=== PATIENT | female | born 1965 | race Caucasian/White ===

== ENCOUNTER 2020-04-18 14:06 | Emergency (ER) | payer BC ==
--- OUTSIDE RECORDS SUMMARY | 2020-04-18 14:09 | XMS REPORT | Summary of Care ---
:1965 Author Organization [facility] - Health Address [address] [place] [address] Care Team Providers Name Role Phone Jeimy Palacios Primary Care Provider Encounter Details Date Type Department Care Team Description 01/21/2020 Orders Only [facility] Doctor Unassigned, No [address] [facility] [place] [address] [address] [place] [address] Allergies No Known Allergiesdocumented as of this encounter (statuses as of 01/22/2020) Medications Medication Sig Dispensed Refills Start Date End Date Status VIIBRYD 20 mg Take 20 mg by 0 01/12/2020 A ctive mouth daily. traZODone 100 mg tablet Take 100 mg by 0 12/12/2019 Active mouth at bedtime. levothyroxine 50 mcg Take 50 mcg by 0 12/11/2019 Active tablet mouth every morning. documented as of this encounter (statuses as of 01/22/2020) Active Problems Not on filedocumented as of this encounter (statuses as of 01/22/2020) Social History Tobacco Use Types Packs/Day Years Used Date Former Smoker Smokeless Tobacco: Never Used Alcohol Use Drinks/Week oz/Week Comments Yes Occasional Drink er Sex Assigned at Date Recorded Not on file Job Start Date Occupation Industry Not on file Not on file Not on file Travel History Travel Start Travel End No recent travel history available. documented as of this encounter Last Filed Vital Signs Not on filedocumented in this encounter Plan of Treatment Health Maintenance Due Date Last Done Comments DTaP,Tdap,and Td Vaccines 1977 (1 - Tdap) Breast Cancer Screening 2006 (MAMMOGRAM) PAP SMEAR 08/16/2009 08/16/2006, 09/20/2005, 04/24/2005, Additional history exists COLONOSCOPY 2016 Zoster Recombinant Vaccine 2016 (SHINGRIX) (1 of 2) INFLUENZA VACCINE (#1) 2019 PNEUMOCOCCAL 0-64 YEARS Aged Out No longe r eligible COMBINED SERIES based on patient 's age to complete this topic documented as of this encounter Procedures Procedure Name Priority Date/Time Associated Diagnosis Comme DAY SURGERY - ADC Routine 01/21/2020 12:01 AM CDT documented in this encounter Results Not on filedocumented in this encounter Insurance Payer Benefit Plan Subscriber ID Effective Dates Phone Address Type / Group [employer] [place] [id number] 2018-Kacie [phone] [address] PPO/POS [place] nt [id number] [place] [address] documented as of this encounter
--- OUTSIDE RECORDS SUMMARY | 2020-04-18 14:09 | XMS REPORT | Summary of Care ---
:1965 Author Organization [facility] - Health Address [address] [place] [id number] Care Team Providers Name Role Phone Jeimy Palacios Primary Care Provider Reason for Visit Auth/Cert Status Reason Specialty Diagnoses / Procedures Referred By C ontact Referred To Contact Surgery Diagnoses Other tear of medial meniscus, current injury, right knee, initial encounter Sprain of anterior cruciate ligament of right knee, initial encounter Tear of mm, sprain of acl Adc Pre/Pacu/Post S83.241A (ICD-10 -CM) - Other tear of medial meniscus, current injury, right knee, initial encounter S83.511A (ICD-10-CM) - Sprain of anterior cruciate ligament of right knee, initial encounter [facility] Procedures [facility] CODING HELP [facility] CODING HELP [place] KNEE SCOPE,AID ANT CRUCIATE REPAIR [place] ARTHRS KNE SURG W/MENISCECTOMY MED/LAT W/SHVG KNEE ARTHROSCOPY 66933 - [place] ARTHRS KNE SURG W/MENISCECTOMY MED/LAT W/SHVG ANTERIOR CRUCIAT E LIGAMENT RECONSTRUCTION [id number] - [place] KNEE SCOPE,AID [place] [address] Phone: Fax: Encounter Details Date Type Department Care Team Description 01/21/2020 Anesthesia [facility] John Paul Araiza MD [address] [place] [address] Surgical Center Leydi Khan CRNA [address] [place] [address] [phone] [place] [address] [place] [address] Allergies No Known Allergiesdocumented as of this encounter (statuses as of 01/23/2020) Medications Medication Sig Dispensed Refills Start Date End Date Status VIIBRYD 20 mg Take 20 mg by 0 01/12/2020 A ctive mouth daily. traZODone 100 mg tablet Take 100 mg by 0 12/12/2019 Active mouth at bedtime. levothyroxine 50 mcg Take 50 mcg by 0 12/11/2019 Active tablet mouth every morning. documented as of this encounter (statuses as of 01/23/2020) Active Problems Not on filedocumented as of this encounter (statuses as of 01/23/2020) Social History Tobacco Use Types Packs/Day Years [...] of this encounter Last Filed Vital Signs Vital Sign Reading Time Taken Comments Blood Pressure - - Pulse - - Temperature - - Respiratory Rate 14 01/21/2020 10:45 AM CDT Oxygen Saturation - - Inhaled Oxygen Concentration - - Weight - - Height - - Body Mass Index - - documented in this encounter Plan of Treatment Health [...] Procedure Name Priority Date/Time Associated Diagnosis Comme nts INTUBATION Routine 01/21/2020 9:56 AM Results for this CDT procedure are i n the results section . documented in this encounter Results Intubation (01/21/2020 9:56 AM CDT) Narrative Performed At Arturo John CRNA 01/21/2020 9:5 6 AM Intubation Urgency: elective Airway not difficult General Information and Staff Patient location during procedure: OR Resident/COURIER DRIVER: Arturo John CRNA Performed: resident/COURIER DRIVER Indications and Patient Condition Indications for airway management: anest hesia Spontaneous Ventilation: absent Sedation level: deep Preoxygenated: yes Patient position: sniffing Mask difficulty assessment: 1 - vent by mask Final Airway Details Final airway type: supraglottic airway Successful airway: classic Size 3 Number of attempts at approach: 1 Additional Comments Airway dry intact documented in this encounter Administered Medications Medication Order MAR Action Action Date Dose Rate Site ceFAZolin (ANCEF) injection Given 01/21/2020 9:51 AM CDT 2 g ONCE INTRA PROCEDURE, Starting Sun01/21/20 at 0951, Until Sun01/21/20 at 1054, HANNA, Intra-op dexamethasone (DECADRON PHOSPHATE) injec tion Given 01/21/2020 9:51 AM CDT 4 mg Intravenous, ONCE INTRA PROCEDURE, Starting Sun01/21/20 at 0951, Until Sun01/21/20 at 1054, Routine, Intra-op famotidine (PEPCID (PF)) injection Given 01/21/2020 9:26 AM CDT 20 mg ONCE INTRA PROCEDURE, Starting Sun01/21/20 at 0926, Until Sun01/21/20 at 1054, Routine, Intra-op FENTanyl PF (SUBLIMAZE (PF)) injection Given 01/21/2020 10:05 AM CDT 25 mcg Intravenous, ONCE INTRA PROCEDURE, Starting Sun01/21/20 at 0945, Until Sun01/21/20 at 1054, Routine, Intra-op Given 01/21/2020 10:00 AM CDT 25 mcg Given 01/21/2020 9:45 AM CDT 50 mcg HYDROmorphOne (DILAUDID) injection Given 01/21/2020 10:40 AM CDT 0.5 mg Intravenous, ONCE INTRA PROCEDURE, Starting Sun01/21/20 at 1025, Until Sun01/21/20 at 1054, Routine, Intra-op Given 01/21/2020 10:30 AM CDT 0.5 mg Given 01/21/2020 10:25 AM CDT 0.5 mg lactated ringers IV infusion New Bag 01/21/2020 9:34 AM CDT IV Infusion, CONTINUOUS PRN, Starting Sun01/21/20 at 0934, Until Sun01/21/20 at 1054, Routine, Intra-op lidocaine 1% (XYLOCAINE) 100 mg/10 mL (1 %) Given 01/21/2020 9: 45 AM CDT 5 mL injection ONCE INTRA PROCEDURE, Starting Sun01/21/20 at 0945, Until Sun01/21/20 at 1054, Routine, Intra-op midazolam (VERSED) injection Given 01/21/2020 9:34 AM CDT 2 mg IV Push, ONCE INTRA PROCEDURE, Starting Sun01/21/20 at 0934, Until Sun01/21/20 at 1054, Routine, Intra-op propofol IV infusion Given 01/21/2020 9:45 AM CDT 100 mg Intravenous, ONCE INTRA PROCEDURE, Starting Sun01/21/20 at 0945, Until Sun01/21/20 at 1054, Routine, Intra-op documented in this encounter Insurance Payer Benefit Plan Subscriber ID Effective Dates Phone Address Type / Group BCBS OF [facility] [id number] 2018-Prese [phone] [address] PPO/POS [facility] 7 [id number] [place] [address] (Work) documented as of this encounter
--- OUTSIDE RECORDS SUMMARY | 2020-04-18 14:09 | XMS REPORT | Summary of Care ---
:1965 Author Organization [facility] - Health Address [address] [place] [address] Care Team Providers Name Role Phone Philip Jeimy Zhao Primary Care Provider Reason for Visit Auth/Cert [...] ligament of right knee, initial encounter [address] [facility] Procedures [facility] CODING HELP [facility] CODING HELP [place] KNEE SCOPE,AID ANT CRUCIATE REPAIR [place] ARTHRS KNE SURG W/MENISCECTOMY MED/LAT W/SHVG KNEE ARTHROSCOPY [id number] - [place] ARTHRS KNE SURG W/MENISCECTOMY MED/LAT W/SHVG Dr MESSER CRUCIAT E LIGAMENT RECONSTRUCTION [id number] - [place] KNEE SCOPE,AID [place] [address] Phone: Fax: Encounter Details Date Type Department Care Team Description 01/21/2020 Hospital Encounter [facility] MD Gael [address] [facility] [place] [address] [address] [place], [place] [id number] Allergies No Known Allergiesdocumented as of this encounter (statuses as of 01/21/2020) Medications Medication Sig Dispensed Refills Start Date End Date Status VIIBRYD 20 mg Take 20 mg by 0 01/12/2020 A ctive mouth daily. traZODone 100 mg tablet Take 100 mg by 0 12/12/2019 Active mouth at bedtime. levothyroxine 50 mcg Take 50 mcg by 0 12/11/2019 Active tablet mouth every morning. documented as of this encounter (statuses as of 01/21/2020) Active Problems Not on filedocumented as of this encounter (statuses as of 01/21/2020) Social History Tobacco Use Types Packs/Day Years [...] Sign Reading Time Taken Comments Blood Pressure 116/64 01/21/2020 11:45 AM CDT Pulse 62 01/21/2020 11:45 AM CDT Temperature 36.9 C (98.4 F) 01/21/2020 11:45 AM CDT Respiratory Rate 18 01/21/2020 11:45 AM CDT Oxygen Saturation 96% 01/21/2020 11:45 AM CDT Inhaled Oxygen Concentration - - Weight 63.5 kg (139 lb 15.9 oz) 01/20/2020 1:18 PM CDT Height 160 cm (5' 2.99") 01/20/2020 1:18 PM CDT Body Mass Index 24.8 01/20/2020 1:18 PM CDT documented in this encounter Discharge Instructions InstructionsFelisha Schultz RN - 01/21/2020 Patient Discharge Instructions Discharge date: 01/21/2020 Procedure(s): Procedure(s): KNEE ARTHROSCOPY Discharge Orders Regular Diet; Texture: Regular. Texture Regular. Diabetic: No Discharge Condition - Discharge Condition: GOOD Discharge ActivityF/U my office 2 weeks, sooner to office or ER with problems, encourage early mobility, ok to be WBAT, walker or crutches if needed. May loosen callie wrap if too tight, may change to smaller sterile dressing POD #4, also take ASA 325 mg po qd x 14 days Discharge Activity: Ambulate VTE Propylaxis- Was ordered during hospitalization Follow instructions as indicated below: 1. The medication that was used will be acting in your system for the next 24 hours, so you might feel a little drowsy, with impaired judgment and or motor function. This feeling should go wear off. Because the medication is still in your system for the next 24 hours you SHOULD NOT: Drive a car, operate machinery or power tool. Drink any alcohol beverages (including beer or wine). Make any important decisions or sign any legal documents. 2. You should rest the remainder of the day and not engage in any physical activity. Move slowly today. After lying down, sit on the edge of the bed for a moment before standing. YOU ARE RESPONSIBLEFOR HAVING SOMEONE AT HOME WITH YOU DURING THE AFTERNOON AND NIGHT IMMEDIATELY FOLLOWING YOUR SURGERY. Patient should cough and deep breathe every 2-4 hours while awake to avoid respiratory complications. 4. Lifting: No lifting over 5 pounds 5. Weight: In general, sudden weight gains or losses should be reported to your provider. Cardiac patients should weigh daily and notify their provider for a weight gain of 3 pounds per day or 5 pounds per week. 6. Tobacco Avoidance: Follow recommendations below 7. Because the medications used could procedure some residual nausea and vomiting after you go home,you should eat lightly today, starting with clear liquids (broth, soft drinks, apple juice, jello) and toast or crackers, progressing to bland solid foods and then to your normal diet as tolerated, unle ss otherwise stated by your surgeon. If you get sick, wait a couple of hours and then begin to eat. After 24 hours the nausea should be gone. 8. You may experience some pain and your physician will advise you on what to take for discomfort. This should be taken as directed. If the pain is not relieved, contact your physician. You may alsohave a sore throat from the airway that was in place. You may uses lozenges, throat spray (such as C hloraseptic), or warm salt water gargles for symptomatic relief. 9. If you feel warm, take your temperature. If it is 101 degrees or above call your physician. 10. If you are unable to urinate within five hours after your procedure, call your physician. 11. The type of surgery performed will determine how much bleeding (if any) to expect. Normally, some spotting might occur. If your dressing pad becomes saturated, notify your physician. Elevate surgical site, if applicable, to reduced swelling and pain. 12. Wound/dressing care: keep dressing clean, dry, and intact. SEE ABOVE WOUND CARE INSTRUCTIONS Tips on preventing a surgical site infection.. Dont smoke. It is best to quit at least 30 days before surgery, but quitting after surgery is also helpful. If you are diabetic, keep your blood sugar well controlled. WASH YOUR HANDS. Keep your wound clean and remember to wash your hands before and after contact with the area. All health care workers should also wash their hands or use an alcohol based hand rub prior to examining you. If antibiotics are prescribed, take them as directed. Finish the entire course of antibiotics. Call your doctor if you have signs of infection: ? Increased tenderness at the surgical site ? Red streaks or increased redness of the area ? Bad-smelling discharge from the incision ? Fever of 101F or higher ? General tired feeling that doesnt improve 13. Other discharge instructions: None 14. Special Instructions: NONE Take Home Medications These are medications ordered for you by your healthcare provider. Do not take any other medications or supplements unless advised by your healthcare provider. Current Discharge Medication List CONTINUE these medications which have NOT CHANGED Details levothyroxine 50 mcg tablet Take 50 mcg by mouth every morning. traZODone 100 mg tablet Take 100 mg by mouth at bedtime. VIIBRYD 20 mg Take 20 mg by mouth daily. Follow-up appointments: Your follow up appointment with your surgeon has been made. Appointment Date: Call office to make follow up appointment in 1-2 weeks For questions regarding follow-up instructions call the [facility] at or If you experience any of the following symptoms For worsening symptoms/changing condition/problems or questions: Non-emergency/urgent: Call the [facility] at or or Emergency: Go to the closest emergency room or call 264 If you receive the patient satisfaction survey by mail please complete and return and let us know how we are doing. TOBACCO AVOIDANCE Exposure to tobacco either from smoking or from second hand (environmental) smoke or smokeless tobacco (snuff) is damaging to your health. This information is to encourage everyone to avoid tobacco exposure. It is recommended that you: ? If you smoke or use smokeless tobacco, we encourage you to quit. ? If you have already quit smoking, continue your good work! ? If you do not smoke or use smokeless tobacco, do not start. ? Avoid secondhand smoke. Additional Resources You may want to contact these organizations for further information on smoking and how to quit. [place] [employer], http://www.lungusa.org/stop-smoking/ [place] [employer], http://www.cancer.org/Healthy/StayAwayfromTobacco/index [place] [employer], http://www.heart.org/HEARTORG/GettingHealthy/QuitSmoking/Quit-Smoking_M _001085_SubHomePage.jsp documented in this encounter Plan of Treatment [...] this topic documented as of this encounter Results Not on filedocumented in this encounter Visit Diagnoses Diagnosis Acute pain of right knee - Primary documented in this encounter Administered Medications Medication Order MAR Action Action Date Dose Rate Site qtjkrrzgrhs-rwiafdbnshn-fy Given 01/21/2020 10:49 AM CDT 30 mL Right Knee (SENSORCAINE W/EPINEPHRINE) 0.25 %-1:200,000 injection PRN, Starting Sun01/21/20 at 1049, Until Discontinued, Routine, Intra-op ceFAZolin (ANCEF) 1,000 mg in NaCl 0.9% (NS) 50 mL piggyback 1,000 mg, IV Piggyback, O.R. HOLDING ONC E, 1 dose, Starting Sun01/21/20 at 0930, Until Sheila 3/12/20 at 2359, 50 mL, DSU Pr e-op, Reason for Anti-Infective: Surgical Prophylaxis, Surgical Prophylaxis: Orthopaedic, Durati on of therapy: within 24 hours of surgery FENTanyl PF (SUBLIMAZE (PF)) injection 2 5 mcg 25 mcg, Slow IV Push, Q5MIN PRN, 4 doses, Starting 01/21/20 at 1106, Until Discontinued, Routine, Pain (scale 4-6), PACU HYDROmorphone (DILAUDID) injection 0.2 m g 0.2 mg, Slow IV Push, Q5MIN PRN, 10 doses, Starting We d 01/21/20 at 1106, Until Discontinued, Routine, Pain (scale 7-10) , PACU, Use approved by (Faculty): PACU USE -ANESTHESIA SERVICE-HYDROMORPHONE INJECTIONS lactated ringers IV infusion 1,000 mL at 75 mL/hr, 1,000 mL, IV Infusion, CONT INUOUS, Starting Sun01/21/20 at 1115, Until Discontinued, Routine, PACU ondansetron (ZOFRAN (PF)) injection 4 mg 4 mg, Slow IV Push, PRN, 1 dose, Startin g Sun01/21/20 at 1106, Until Discontinued, Routine, Nausea and Vomiting (N/V), PACU Medication Order MAR Action Action Date Dose Rate Site lactated ringers IV infusion New Bag 01/21/2020 8:39 AM CDT 1,000 mL 20 mL/hr 1,000 mL at 20 mL/hr, 1,000 mL, IV Infusion, ONCE, 1 dose, Sun01/21/20 at 0830, Routine, DSU Pre-op documented in this encounter Insurance Payer Benefit Plan Subscriber ID Effective Dates Phone Address Type / Group [facility] [id number] 2018-Prese [phone] [address] PPO/POS [facility] 7 [id number] [place] [address] Guarantor Name Account Type Relation to Date of Phone Billing Address Patient Madelyn Schmidt Personal/Family Self [address] (Home) [place] [phone] [place] [id number] (Work) documented as of this encounter
--- OUTSIDE RECORDS SUMMARY | 2020-04-18 14:09 | XMS REPORT | Continuity of Care Document ---
:1965 Author Organization [facility] t Address [address] [place] [address] [address]. [address] [place] [address] Care Team Providers Name Role Phone Gael Villa MD Attending Clinician Erin CALLES Attending Clinician Zhao Trinidad MD Attending Clinician Doctor Unassigned, Name Attending Clinician Unavailable Pob, Lab Main Attending Clinician Unavailable Gael Villa MD Admitting Clinician Problems This patient has no known problems. Allergies, Adverse Reactions, Alerts This patient has no known allergies or adverse reactions. Medications This patient has no known medications. Procedures This patient has no known procedures. Encounters Start End Encounter Admission Attending Care Care Encounter Source Date/Time Date/Time Type Type Clinicians Facility Department ID 2020-01-21 2020-01-21 [facility] [id number] 08:27:00 12:16:00 Encounter Wilver Norris [id number] [place] [id number] Surgical [id number] [place] 071 2020-01-21 2020-01-21 Anesthesia Leydi Khan [facility] [id number] 09:34:00 10:54:00 John Paul Trinidad [id number] [place] [id number] Surgical [id number] [place] 020 2020-01-21 2020-01-21 Orders Doctor SARBJIT [id number] 00:00:00 00:00:00 Only Unassigned, DANI [id number] [place] [id number] 2020-01-19 2020-01-19 Timekeeping Supervisor Sissy Austin [place] [id number] 09:49:44 10:04:44 Visit Lab Main [place] [id number] [place] [id number] [facility] [id number] [address] 2020-01-19 2020-01-19 Orders Doctor SARBJIT [id number] 00:00:00 00:00:00 Only Unassigned, DANI [id number] [place] [id number] Results This patient has no known results.
[2020-04-18] MEDS ORDERED: HYDROCODONE/APAP 5/325 MG TAB ONE (14:52)
--- NOTE | 2020-04-18 15:32 | RAD REPORT ---
EXAM DESCRIPTION: RAD - Hand Right 3 View - 04/18/2020 3:18 pm CLINICAL HISTORY: ANIMAL BITE COMPARISON: No comparisons FINDINGS: Soft tissue swelling is seen affecting the first digit. No fracture or foreign body.
--- NOTE | 2020-04-18 15:40 | EDPHYS ---
Physician Documentation [facility] Name: Madelyn Schmidt Age: 54 yrs Sex: Female : 1965 Arrival Date: 04/18/2020 Time: 14:09 Bed 20 Private MD: ED Physician Jose A Jc HPI: 04/18 14:34 This 54 yrs old Female presents to ER via Ambulatory with complaints of Dog pm1 Bite. 14:34 The patient was bitten on the right hand, by a dog, while approaching the animal, pm1 outdoors. Onset: The symptoms/episode began/occurred yesterday. Animal information: Patient/Caregiver unable to provide information related to the animal. Animal control has been notified, Patient states that she talked to Mark with animal control. Secondary to the bite the patient reports multiple puncture wounds, two puncture wounds, dorsal and palmar aspect of right first metacarpal. Associated signs and symptoms: Pertinent negatives: bony tenderness, motor deficit, numbness distal to wound, tenderness. The patient has not experienced similar symptoms in the past. The patient has not recently seen a physician. Historical: - Allergies: 14:30 No Known Allergies; ll1 - PSHx: 14:30 ; right knee surgery; ll1 - Social history:: Patient/guardian denies using alcohol, street drugs, tobacco products. ROS: 14:36 Constitutional: Negative for fever, chills, and weight loss, Cardiovascular: Negative pm1 for chest pain, palpitations, and edema, Respiratory: Negative for shortness of breath, cough, wheezing, and pleuritic chest pain, Abdomen/GI: Negative for abdominal pain, nausea, vomiting, diarrhea, and constipation, Back: Negative for injury and pain. 14:36 Neuro: Negative for headache, weakness, numbness, tingling, and seizure. 14:36 MS/extremity: Positive for laceration, of the right hand, Negative for decreased range of motion, deformity. 14:36 Skin: Positive for laceration(s), of the right hand. Exam: 14:36 Constitutional: This is a well developed, well nourished patient who is awake, alert, pm1 and in no acute distress. Head/Face: Normocephalic, atraumatic. 14:36 Cardiovascular: Exam negative for acute changes, Rate: normal, Rhythm: regular, Pulses: no pulse deficits are appreciated. 14:36 Respiratory: Exam negative for acute changes, respiratory distress, shortness of breath. 14:36 Musculoskeletal/extremity: Extremities: grossly normal except: noted in the dorsal aspect of proximal phalanx of right thumb and palmar aspect of proximal phalanx of right thumb: laceration, 1 cm length on both sides, 2 mm deep on dorsal aspect and 1 mm deep on palmar aspect, There is no evidence of decreased ROM, deformity, ROM: no acute changes, Circulation is intact in all extremities. the right hand Sensation intact. 14:36 Skin: Appearance: normal except for affected area, injury, laceration(s), that can be described as right hand. 14:36 Neuro: Orientation: is normal, Mentation: is normal, Motor: is normal, moves all fours, Sensation: is normal, no obvious gross deficits. Vital Signs: 14:28 BP 124 / 83; Pulse 70; Resp 17; Temp 97.6; Pulse Ox 100% ; Pain 6/10; ll1 MDM: 14:30 Patient medically screened. pm1 15:30 Data reviewed: vital signs. Data interpreted: Pulse oximetry: on room air is 100 %. pm1 Interpretation: normal. Counseling: I had a detailed discussion with the patient and/or guardian regarding: the historical points, exam findings, and any diagnostic results supporting the discharge/admit diagnosis, radiology results, the need for outpatient follow up, to return to the emergency department if symptoms worsen or persist or if there are any questions or concerns that arise at home. 15:40 ED course: shallow and short laceration to right hand. No sutures required. pm1 04/18 14:34 Order name: Hand Right 3 View XRAY; Complete Time: 15:40 pm1 04/18 14:34 Order name: Wound Care; Complete Time: 19:45 pm1 Administered Medications: 14:46 Drug: Jasper 5 mg-325 mg 1 tabs Route: PO; 15:00 Follow up: Response: No adverse reaction 15:30 Drug: Augmentin 875 mg Route: PO; 19:45 Follow up: Response: No adverse reaction Disposition: 17:40 Co-signature as Attending Physician, Jose A Jc MD. rn Disposition: 04/18/20 15:36 Discharged to Home. Impression: Bitten by dog, Laceration without foreign body of right hand. - Condition is Stable. - Discharge Instructions: Laceration Care, Adult, Animal Bite. - Prescriptions for Augmentin 875- 125 mg Oral Tablet - take 1 tablet by ORAL route every 12 hours for 10 days; 20 tablet. Tramadol 50 mg Oral Tablet - take 1 tablet by ORAL route every 8 hours as needed; 12 tablet. - Medication Reconciliation Form, Thank You Letter, Antibiotic Education, Prescription Opioid Use form. - Follow up: Emergency Department; When: As needed; Reason: Worsening of condition. Follow up: Private Physician; When: 2 - 3 days; Reason: Recheck today's complaints, Continuance of care, Re-evaluation by your physician. - Problem is new. - Symptoms have improved. Signatures: Dispatcher [employer] EDMS Jose A Jc MD MD rn Marinas, Patrick, NP LINES TENDER pm1 Karissa Patel RN RN Audrey Reyes RN RN Johnna Leija RN RN ll1 Corrections: (The following items were deleted from the chart) 15:51 15:36 04/18/2020 15:36 Discharged to Home. Impression: Bitten by dog; Laceration hb without foreign body of right hand. Condition is Stable. Forms are Medication Reconciliation Form, Thank You Letter, Antibiotic Education, Prescription Opioid Use. Follow up: Emergency Department; When: As needed; Reason: Worsening of condition. Follow up: Private Physician; When: 2 - 3 days; Reason: Recheck today's complaints, Continuance of care, Re-evaluation by your physician. Problem is new. Symptoms have improved. pm1
--- NOTE | 2020-04-18 15:40 | ER ---
Nurse's Notes [facility] Name: Madelyn Schmidt Age: 54 yrs Sex: Female : 1965 Arrival Date: 04/18/2020 Time: 14:09 Bed 20 Private MD: Diagnosis: Bitten by dog;Laceration without foreign body of right hand Presentation: 04/18 14:28 Chief complaint: Patient states: Bitten by a stray dog yesterday at 1600. Right hand ll1 1st digit pain and swelling started today. Coronavirus screen: Proceed with normal triage. Patient denies a cough. Patient denies shortness of breath or difficulty breathing. Patient denies measured and/or subjective temperature greater than 100.4F prior to today's visit. Patient denies travel on a cruise ship or to a country the [facility] currently lists as an affected area. Patient denies contact with known and/or suspected case of COVID-19. Ebola Screen: Patient denies travel to an Ebola-affected area in the 21 days before illness onset. Risk Assessment: Do you want to hurt yourself or someone else? Patient reports no desire to harm self or others. Onset of symptoms was April 17, 2020. 14:28 Method Of Arrival: Ambulatory ll1 14:28 Acuity: MANISHA 4 ll1 14:49 Initial Sepsis Screen: Does the patient meet any 2 criteria? No. Patient's initial ll1 sepsis screen is negative. Does the patient have a suspected source of infection? No. Patient's initial sepsis screen is negative. Triage Assessment: 14:51 Bite description: by a dog. 19:49 Bite description: bite. Historical: - Allergies: 14:30 No Known Allergies; ll1 - PSHx: 14:30 ; right knee surgery; ll1 - Social history:: Patient/guardian denies using alcohol, street drugs, tobacco products. Screenin:51 Abuse screen: Denies threats or abuse. Nutritional screening: No deficits noted. Tuberculosis screening: No symptoms or risk factors identified. Fall Risk None identified. Assessment: 14:34 Reassessment: Dog bit reported to [facility], officer in route. hb 14:48 General: Appears in no apparent distress. Behavior is calm, cooperative. Pain: Complains of pain in Right first web space. Neuro: Level of Consciousness is awake, alert, Oriented to person, place, time, situation. Cardiovascular: Capillary refill < 3 seconds Patient's skin is warm and dry. Respiratory: Airway is patent Respiratory effort is even, unlabored, Respiratory pattern is regular, symmetrical. GI: Abdomen is non-distended. Derm: Skin is healthy with good turgor, Skin is pink, Wound noted Right first web space Reports pain. Vital Signs: 14:28 BP 124 / 83; Pulse 70; Resp 17; Temp 97.6; Pulse Ox 100% ; Pain 6/10; ll1 ED Course: 14:09 Patient arrived in ED. 1 14:24 Pierre Matos NP is PHCP. pm1 14:24 Jose A Jc MD is Attending Physician. pm1 14:30 Triage completed. 1 14:31 Arm band placed on Patient placed in an exam room, on a stretcher. 1 14:42 Audrey Ramon, RN is Primary Nurse. 14:52 Patient has correct armband on for positive identification. Bed in low position. Call light in reach. Side rails up X 1. 15:18 Hand Right 3 View XRAY In Process Unspecified. EDIN 15:40 No provider procedures requiring assistance completed. Patient did not have IV access during this emergency room visit. Administered Medications: 14:46 Drug: Dalton 5 mg-325 mg 1 tabs Route: PO; 15:00 Follow up: Response: No adverse reaction 15:30 Drug: Augmentin 875 mg Route: PO; 19:45 Follow up: Response: No adverse reaction Outcome: 15:36 Discharge ordered by MD. pm1 15:40 Discharged to home ambulatory. 15:40 Condition: good 15:40 Discharge instructions given to patient, Instructed on discharge instructions, follow up and referral plans. medication usage, Demonstrated understanding of instructions, follow-up care, medications, Prescriptions given X 2. 15:51 Patient left the ED. Signatures: Dispatcher [employer] EDIN Pierre Matos NP LINER INSTALLER pm1 Karissa Patel RN RN hb James, Frank [facility] Audrey Ramon RN RN Johnna Leija RN RN [facility] Corrections: (The following items were deleted from the chart) 19:46 14:40 General: Appears [facility]
[2020-04-18 15:59] VITALS: BP 124/83; TEMP 97.6; O2SAT 100
== END 2020-04-18 15:51 | disposition home or self-care (01) ==
LOC: ER 14:06
DX: S61.411A Laceration without foreign body of right hand, initial encounter (principal); W54.0XXA Bitten by dog, initial encounter; Y93.89 Activity, other specified; Y92.89 Other specified places as the place of occurrence of the external cause
CPT/HCPCS: 99283

== ENCOUNTER 2021-08-02 15:53 | Inpatient (IN) | payer BC ==
--- NOTE | 2021-08-02 17:59 | RAD REPORT ---
EXAM DESCRIPTION: RAD - Hand Right 3 View - 08/02/2021 5:34 pm CLINICAL HISTORY: hand paincat bite lateral wrist, area of interest marked distal radial metaphyseal region COMPARISON: Hand Right 3 View dated 04/18/2020 FINDINGS: No fracture is identified. There is no dislocation or periosteal reaction noted. No acute bone finding identifiable. On the lateral view there are small bone densities along the dorsal doc n second carpal row near the carpal - metacarpal articulation. These were present on the 2019 study. Significant soft tissue swelling is present over the dorsal margin of the hand and wrist. No air or f oreign body identified. IMPRESSION: Prominent right hand and wrist soft tissue swelling. No air or foreign body identified. No acute bone finding.
[2021-08-02 19:24] LABS: Absolute Lymphocytes (CBC) 1.8 K/uL (0.7-4.9); Basophils % 0.8 % (0-1.3); Hematocrit 35.9 % (36.0-45.0); Lymphocytes % 29.1 % (15.3-44.8); MPV 7.6 fL (7.6-11.3); RBC Red Blood Cell Count 3.78 M/uL (3.86-4.86)
[2021-08-02 19:52] LABS: ALT/SGPT 17 U/L (12-78); AST/SGOT 19 U/L (15-37); Albumin 3.3 g/dL (3.4-5.0); Alkaline Phosphatase 80 U/L (45-117); BUN Blood Urea Nitrogen 10 mg/dL (7-18); Bicarbonate 29 mmol/L (21-32); Bilirubin Total 0.2 mg/dL (0.2-1.0); Glucose Level 100 mg/dL (74-106); Protein, Total 6.5 g/dL (6.4-8.2); Sodium Level 139 mmol/L (136-145)
--- NOTE | 2021-08-02 21:57 | ER ---
Nurse's Notes [facility] Name: Madelyn Schmidt Age: 55 yrs Sex: Female : 1965 Arrival Date: 08/02/2021 Time: 15:53 Bed 25 Private MD: Diagnosis: Cat Bite;Cellulitis of the Right Arm;Failed Outpatient Therapy Presentation: 08/02 16:03 Chief complaint: Patient states: Bite and scratched by her cat . Started ll1 Augmentin Sunday. L hand/arm is getting better. R hand is swollen and painful still. No fever. Coronavirus screen: Vaccine status: Patient reports receiving the 2nd dose of the covid vaccine. Client denies travel out of the [place] in the last 14 days. At this time, the client does not indicate any symptoms associated with coronavirus-19. Ebola Screen: Patient denies travel to an Ebola-affected area in the 21 days before illness onset. Initial Sepsis Screen: Does the patient meet any 2 criteria? No. Patient's initial sepsis screen is negative. Does the patient have a suspected source of infection? Yes: Skin breakdown/wound. Risk Assessment: Do you want to hurt yourself or someone else? Patient reports no desire to harm self or others. Onset of symptoms was July 28, 2021. 16:03 Method Of Arrival: Ambulatory 1 16:03 Acuity: MANISHA 3 ll1 Triage Assessment: 16:06 Bite description: bite sustained to right hand by a cat, animal information: ll1 Appearance: appeared well, vaccination(s) is current. General: Appears in no apparent distress. Behavior is calm, cooperative, appropriate for age. Pain: Complains of pain in R hand Quality of pain is described as aching, Aggravated by increased activity. Historical: - Allergies: 16:02 No Known Allergies; ll1 - PMHx: 16:02 Depressive disorder; thyroid; ll1 - PSHx: 16:02 knee SX, bilat hands, back SX; ll1 - Immunization history:: Client reports receiving the 2nd dose of the Covid vaccine, Flu vaccine is up to date. - Social history:: Smoking status: Patient reports the use of cigarette tobacco products, denies chronic smoking, but will smoke occasionally. Screenin:07 Abuse screen: Denies threats or abuse. Nutritional screening: No deficits noted. ll1 Tuberculosis screening: No symptoms or risk factors identified. 18:22 Fall Risk None identified. aj2 Assessment: 18:22 General: Appears in no apparent distress. comfortable, well groomed, well developed, aj2 well nourished, Behavior is calm, cooperative, appropriate for age. Derm: Skin is intact, is healthy with good turgor, Skin is pink, warm \T\ dry. Vital Signs: 16:03 BP 102 / 63; Pulse 68; Resp 17; Temp 98.4; Pulse Ox 96% ; Weight 64.41 kg; Height 5 ft. ll1 2 in. (157.48 cm); Pain 4/10; 18:22 BP 94 / 56; Pulse 58; Resp 18; Temp 97.8; Pulse Ox 99% ; aj2 20:00 BP 106 / 81; Pulse 80; Resp 20; Temp 98.6; Pulse Ox 100% ; Weight 94.1 kg; aj2 20:00 Body Mass Index 37.94 (94.10 kg, 157.48 cm) aj2 ED Course: 15:53 Patient arrived in ED. as 16:02 Arm band placed on. ll1 16:06 Triage completed. ll1 16:07 Patient has correct armband on for positive identification. Call light in reach. Side ll1 rails up X 1. Cardiac monitoring not applicable on this patient. 16:51 Torres Artis PA is PHCP. [facility] 16:51 Jose A Jc MD is Attending Physician. [facility] 17:33 Hand Right 3 View XRAY In Process Unspecified. EDMS 18:21 Matty Anthony is Primary Nurse. aj2 18:22 No apparent distress. Resting quietly. aj2 18:22 No provider procedures requiring assistance completed. Patient did not have IV access aj2 during this emergency room visit. 19:17 Procalcitonin Sent. aj2 19:17 Lactate Sent. aj2 19:17 Blood Culture Adult (2) Sent. aj2 19:18 CMP Sent. aj2 19:18 CBC with Diff Sent. aj2 21:56 Jesus Eaton is Hospitalizing Provider. m Administered Medications: 23:37 Drug: Unasyn (ampicillin-sulbactam) 3 grams Route: IVPB; Infused Over: 30 mins; Site: cc4 left forearm; Outcome: 21:56 Decision to Hospitalize by Provider. royer 08/03 18:30 Patient left the ED. iw Signatures: Dispatcher [employer] EDMS Torres Artis PA PA jmm Martinez, Amelia as Williams, Irene, RN Johnna Rayo RN RN ll1 Matty Anthony Christie, RN RN cc4 Corrections: (The following items were deleted from the chart) 08/02 21:28 21:15 Reassessment: 5mg Valium IV given at this time. VSS cc4 cc4 : 21:15 Reassessment: 0.5 mg Dilaudid IV given at this time. Pt thrashing around in bed cc4 with co pain to posterior upper right leg. VSS cc4 21:28 20:50 BP 162 / 75; Pulse 60bpm; Resp 20bpm; Pain 10/10; cc4 cc4 21:28 20:59 BP 170 / 70; Pulse 60bpm; Resp 18bpm; Pulse Ox 100%; Pain 8/10; cc4 cc4
--- NOTE | 2021-08-02 21:57 | EDPHYS ---
Physician Documentation [facility] Name: Madelyn Schmidt Age: 55 yrs Sex: Female : 1965 Arrival Date: 08/02/2021 Time: 15:53 Bed 25 Private MD: ED Physician Jose A Jc HPI: 08/02 17:39 This 55 yrs old Female presents to ER via Ambulatory with complaints of Cat jmm Bite - infection worsening. 17:39 The patient was bitten on the right hand. Onset: The symptoms/episode began/occurred jmm gradually, 5 day(s) ago. Secondary to the bite the patient reports erythema. Associated signs and symptoms: Pertinent positives: erythema at site, pain at site. This is a 55-year-old female with a history of depression that presents emerged part with complaints of increased swelling to the right wrist and hand following a cat bite which occurred this past . Patient was prescribed Augmentin on Sunday. Patient states that swelling has continued. Denies fever, chills.. Historical: - Allergies: 16:02 No Known Allergies; ll1 - PMHx: 16:02 Depressive disorder; thyroid; ll1 - PSHx: 16:02 knee SX, bilat hands, back SX; ll1 - Immunization history:: Client reports receiving the 2nd dose of the Covid vaccine, Flu vaccine is up to date. - Social history:: Smoking status: Patient reports the use of cigarette tobacco products, denies chronic smoking, but will smoke occasionally. ROS: 17:39 Constitutional: Negative for fever, chills, and weight loss, Cardiovascular: Negative jmm for chest pain, palpitations, and edema, Respiratory: Negative for shortness of breath, cough, wheezing, and pleuritic chest pain. 17:39 Skin: Positive for hematoma, swelling. 17:39 All other systems are negative. Exam: 17:39 Constitutional: This is a well developed, well nourished patient who is awake, alert, jmm and in no acute distress. Head/Face: atraumatic. Eyes: EOMI, no conjunctival erythema appreciated ENT: Moist Mucus Membranes Neck: Trachea midline, Supple Chest/axilla: Normal chest wall appearance and motion. Cardiovascular: Regular rate and rhythm. No edema appreciated Respiratory: Normal respirations, no respiratory distress appreciated Abdomen/GI: Non distended, soft Back: Normal ROM 17:39 Musculoskeletal/extremity: Swelling noted to the right hand, full radial pulse, compartments are soft, neurovascular intact. 17:39 Skin: Swelling, erythema noted to the right wrist and hand, the area is mildly tender to palpation. 17:39 Neuro: Orientation: is normal, Mentation: is normal, Memory: is normal. 17:39 Psych: Behavior/mood is pleasant, cooperative. Vital Signs: 16:03 BP 102 / 63; Pulse 68; Resp 17; Temp 98.4; Pulse Ox 96% ; Weight 64.41 kg; Height 5 ft. ll1 2 in. (157.48 cm); Pain 4/10; 18:22 BP 94 / 56; Pulse 58; Resp 18; Temp 97.8; Pulse Ox 99% ; aj2 20:00 BP 106 / 81; Pulse 80; Resp 20; Temp 98.6; Pulse Ox 100% ; Weight 94.1 kg; aj2 20:00 Body Mass Index 37.94 (94.10 kg, 157.48 cm) 2 MDM: 17:16 Patient medically screened. [facility] 21:55 Data reviewed: vital signs, nurses notes. Counseling: I had a detailed discussion with [facility] the patient and/or guardian regarding: the historical points, exam findings, and any diagnostic results supporting the discharge/admit diagnosis, lab results, radiology results, the need for further work-up and treatment in the hospital. 08/02 17:13 Order name: CBC with Diff; Complete Time: 19:29 [facility] 08/02 17:13 Order name: CMP; Complete Time: 19:55 [facility] 08/02 17:13 Order name: Blood Culture Adult (2) [facility] 08/02 17:13 Order name: Lactate; Complete Time: 19:55 [facility] 08/02 17:13 Order name: Procalcitonin; Complete Time: 20:25 [facility] 08/03 05:54 Order name: CBC with Automated Diff; Complete Time: 15:11 [facility] 08/02 17:14 Order name: Hand Right 3 View XRAY; Complete Time: 18:01 [facility] 08/03 06:10 Order name: Comprehensive Metabolic Panel; Complete Time: 15:11 [facility] 08/03 06:10 Order name: Phosphorus; Complete Time: 15:11 [facility] 08/03 06:10 Order name: Magnesium; Complete Time: 15:11 EDMS 08/03 10:57 Order name: COVID-19 : Document "Date of Symptom Onset" if Symptomatic. 08/03 11:19 Order name: CORONAVIRUS EDMS 08/03 12:16 Order name: SARS-COV-2 RT PCR; Complete Time: 15:11 EDMS 08/02 17:13 Order name: Saline Lock; Complete Time: 19:17 [facility] 08/02 21:28 Order name: CONS Physician Consult; Complete Time: 23:37 EDMS Administered Medications: 23:37 Drug: Unasyn (ampicillin-sulbactam) 3 grams Route: IVPB; Infused Over: 30 mins; Site: cc4 left forearm; Disposition Summary: 08/02/21 21:56 Hospitalization Ordered Hospitalization Status: Observation [facility] Provider: Jesus Eaton Condition: Stable jm Problem: new jmm Symptoms: are unchanged [facility] Bed/Room Type: Standard [facility] Location: Telemetry/MedSurg (observation)(08/03/21 15:50) Room Assignment: 429(08/03/21 15:50) Diagnosis - Cat Bite jmm - Cellulitis of the Right Arm jmm - Failed Outpatient Therapy [facility] Forms: - Medication Reconciliation Form [facility] - SBAR form [facility] Addendum: 08/06/2021 19:39 Co-signature as Attending Physician, Jose A Jc MD. r n 19:39 I agree with the assessment and plan of care. Attestation: The patient's history, exam r n findings, diagnostics, and a summary of any interventions or procedures was reviewed in detail with Torres OWEN. Signatures: Dispatcher [employer] [facility] Katina Vinson Joel, PA PA jmm Nieto, Roman, MD MD rn Garcia, Cindy, RN RN cg Lewis, Lynsay, RN RN ll1 Aisha Salamanca RN RN cc4 Corrections: (The following items were deleted from the chart) 08/02 23:45 21:56 Telemetry/MedSurg (observation) [facility] cg 23:45 21:56 [facility] cg 08/03 15:50 08/02 23:45 [facility] ER HOLD cg bd 08/03 15:50 08/02 23:45 ERHOLD- cg bd
[2021-08-02] MEDS ORDERED: HYDRALAZINE HCL 20 MG/ML VIAL IV PRN (23:12)
[2021-08-02] MEDS ORDERED: ONDANSETRON 4 MG/2 ML VIAL IV PRN (23:12)
[2021-08-02] MEDS ORDERED: MORPHINE 2 MG/ML SYR IV PRN (23:12)
[2021-08-02] MEDS ORDERED: AMPICILLIN/SULBACTAM 3GM/VIAL ONE (23:35)
[2021-08-02] MEDS ORDERED: NA CHLORIDE 0.9% 100 ML ONE (23:37)
[2021-08-02] MEDS ORDERED: NA CHLORIDE 0.9% 250 ML ONE (23:42)
[2021-08-02] MEDS: HYDROCODONE/APAP 5/325 MG TAB PO PRN (23:48)
[2021-08-02 23:59] VITALS: BMI 25.9
[2021-08-03] MEDS ORDERED: AMPICILLIN/SULBACT 1.5GM VIAL IVPB SCH
[2021-08-03] MEDS ORDERED: NA CHLORIDE 0.9% 1,000 ML IV SCH
[2021-08-03] MEDS ORDERED: HYDROCODONE/APAP 5/325 MG TAB ONE (00:08)
[2021-08-03] MEDS ORDERED: TRAZODONE 50 MG TABLET ONE (00:31)
--- NOTE | 2021-08-03 00:46 | P.HP ---
Certification for Inpatient Patient admitted to: Inpatient With expected LOS: <2 Midnights Patient will require the following post-hospital care: None Practitioner: I am a practitioner with admitting privileges, knowledge of patient current condition, hospital course, and medical plan of care. Services: Services provided to patient in accordance with Admission requirements found in Title 42 Section 412.3 of the Code of Federal Regulations Patient History Date of Service: 08/02/21 Reason for admission: cat bite History of Present Illness: Ms. Schmidt is a 55 yo F with hypothyroidism and anxiety who presents after a cat bite and scratch that occurred on . The following day she went to the doctor and was prescribed augmentin and hydrocodone. She was instructed to see ortho if no improvement by Sunday, and has an appointment with ortho scheduled for . However the pain and swelling in her right hand continued to increase so she came to the ED. She denies systemic symptoms. Right hand xray shows prominant right hand and wrist soft tissue swelling with no air or foreign body identified and no acute bone finding. Allergies No Known Allergies Allergy (Unverified 04/14/13 07:11) - Past Medical/Surgical History -: hypothyroidism -: anxiety -: R knee surgery -: back surgery -: 2 hand surgeries - Family History Mother -: Heart disease, Hypertension, Diabetes - Social History Smoking Status: Current some day smoker Alcohol use: Yes CD- Drugs: No Caffeine use: Yes Place of Residence: Home Review of Systems 10-point ROS is otherwise unremarkable Musculoskeletal: Hand Pain Integumentary: As per HPI Physical Examination - Physical Exam General: Alert, In no apparent distress HEENT: Atraumatic, PERRLA, Mucous membr. moist/pink, EOMI, Sclerae nonicteric Neck: Supple, 2+ carotid pulse no bruit, No LAD, Without JVD or thyroid abnormality Respiratory: Clear to auscultation bilaterally, Normal air movement Cardiovascular: Regular rate/rhythm, Normal S1 S2 Gastrointestinal: Normal bowel sounds, No tenderness Musculoskeletal: Swelling, Erythema, Tenderness, Warmth Integumentary: Tenderness/swelling, Erythema, Warmth Neurological: Normal gait, Normal speech, Normal strength at 5/5 x4 extr, Normal tone, Normal affect Lymphatics: No axilla or inguinal lymphadenopathy - Studies Laboratory Data (last 24 hrs) 08/02/21 19:05: Sodium 139, Potassium 4.0, BUN 10, Creatinine 0.55, Glucose 100, Total Bilirubin 0.2, AST 19, ALT 17, Alkaline Phosphatase 80 08/02/21 19:05: WBC 6.30, Hgb 12.1, Hct 35.9 L, Plt Count 243 Assessment and Plan - Problems (Diagnosis) (1) Cat bite Current Visit: Yes Status: Acute Qualifiers: Encounter type: initial encounter Qualified Code(s): W55.01XA - Bitten by cat, initial encounter (2) Hypothyroid Current Visit: Yes Status: Chronic Qualifiers: Hypothyroidism type: unspecified Qualified Code(s): E03.9 - Hypothyroidism, unspecified (3) Anxiety Current Visit: Yes Status: Chronic - Plan surgery in the AM npo after midnight continue IV antibiotics antiemetics and pain management as needed reconcile and continue home medications SCDs Discharge Plan: Home Plan to discharge in: 48 Hours - Advance Directives Does patient have a Living Will: No Does patient have a Durable POA for Healthcare: No - Code Status/Comfort Care Code Status Assessed: Yes (full code ) Critical Care: No Time Spent Managing Pts Care (In Minutes): 70
[2021-08-03] MEDS ORDERED: NA CHLORIDE 0.9% 1,000 ML ONE ×2 (01:35→08:37)
[2021-08-03 05:47] LABS: Absolute Lymphocytes (CBC) 1.7 K/uL (0.7-4.9); Basophils % 0.7 % (0-1.3); Hematocrit 30.8 % (36.0-45.0); Lymphocytes % 37.7 % (15.3-44.8); MPV 7.3 fL (7.6-11.3); RBC Red Blood Cell Count 3.24 M/uL (3.86-4.86)
[2021-08-03] MEDS: AMPICILLIN/SULBACT 1.5 GM in NA CHLORIDE 0.9% 100 ML IVPB SCH ×3 (06:00→18:00)
[2021-08-03 06:07] LABS: ALT/SGPT 13 U/L (12-78); AST/SGOT 17 U/L (15-37); Albumin 2.5 g/dL (3.4-5.0); Alkaline Phosphatase 71 U/L (45-117); BUN Blood Urea Nitrogen 7 mg/dL (7-18); Bicarbonate 29 mmol/L (21-32); Bilirubin Total 0.2 mg/dL (0.2-1.0); Glucose Level 104 mg/dL (74-106); Phosphorus 3.3 mg/dL (2.5-4.9); Potassium 3.8 mmol/L (3.5-5.1); Protein, Total 5.5 g/dL (6.4-8.2); Sodium Level 146 mmol/L (136-145)
[2021-08-03] MEDS ORDERED: EPOETIN ALFA-EPBX 10,000 UNIT/ML VIAL ONE (10:00)
[2021-08-03] MEDS ORDERED: FENTANYL CITR 100 MCG/2 ML ONE (14:19)
[2021-08-03] MEDS ORDERED: MIDAZOLAM HCL 2 MG/2 ML INJ ONE (14:19)
[2021-08-03] MEDS ORDERED: LIDOCAINE 1% MPF 5 ML VIAL ONE ×2 (14:20→14:21)
[2021-08-03] MEDS ORDERED: propofoL 200 MG/20 ML VIAL IV ONE ×3 (14:20→14:21)
[2021-08-03] MEDS ORDERED: KETOROLAC 30 MG/ML INJ ONE (14:44)
[2021-08-03] MEDS ORDERED: CODEINE 30MG/APAP 300MG TAB PO PRN (15:20)
[2021-08-03] MEDS ORDERED: MEPERIDINE HCL 25 MG/ML SYR ONE ×2 (15:47→16:00)
--- NOTE | 2021-08-03 17:44 | P.PN ---
Subjective Date of Service: 08/03/21 Chief Complaint: cat bite Patient has no new complain. No fever. Physical Examination - Vital Signs Temperature: 96.9 F Blood Pressure: 115/78 Pulse: 60 Respirations: 18 Pulse Ox (%): 100 - Physical Exam General: Alert, In no apparent distress, Oriented x2 Neck: JVD not distended Respiratory: Clear to auscultation bilaterally, Normal air movement Cardiovascular: No edema, Regular rate/rhythm, Normal S1 S2 Gastrointestinal: Normal bowel sounds, Soft and benign, Non-distended, No tenderness Musculoskeletal: Swelling (Dorsum of right hand) Integumentary: Other (2 bite spicer noted on the dorsum of the right wrist.) Neurological: Normal strength at 5/5 x4 extr - Studies Laboratory Data (last 24 hrs) 08/02/21 19:05: Sodium 139, Potassium 4.0, BUN 10, Creatinine 0.55, Glucose 100, Total Bilirubin 0.2, AST 19, ALT 17, Alkaline Phosphatase 80 08/02/21 19:05: WBC 6.30, Hgb 12.1, Hct 35.9 L, Plt Count 243 Assessment And Plan - Current Problems (Diagnosis) (1) Cat bite Current Visit: Yes Status: Acute Qualifiers: Encounter type: initial encounter Qualified Code(s): W55.01XA - Bitten by cat, initial encounter (2) Anxiety Current Visit: Yes Status: Chronic (3) Hypothyroid Current Visit: Yes Status: Chronic Qualifiers: Hypothyroidism type: unspecified Qualified Code(s): E03.9 - Hypothyroidism, unspecified - Plan Patient is scheduled for I and D by Dr. Iqbal today. Continue IV unasyn. Follow deep tissue wound culture. Pain management as needed. Resume other home medications.
--- NOTE | 2021-08-03 19:28 | OP ---
Surgeon: Dale Iqbal MD Preoperative Diagnosis: Cat bite to the right wrist. Postoperative Diagnosis: Cat bite to the right wrist. Procedure: Debridement of skin and subcutaneous tissue. Anesthesia: General. Procedure In Detail: After satisfactory general anesthesia, the hand prepped with Betadine scrub and paint. Dry sterile drapes were placed in the usual manner. The arm was elevated, tourniquet inflated to 250 mmHg. The hand was placed on roll lock table. Elliptical incision was made over the dorsal wrist. Two separate incisions were made , but there was tunneling between. We then connected to and then dissected down the extensor sheath were made. Cultures were taken. The wound was jet lavaged and irrigated with 3 L of Betadine solution. Tourniquet released. Electrocautery used for hemostasis. Wound packed with half-inch Nu Gauze and Kerlix. The patient tolerated the procedure well and returned to recovery. TY/KAYLEIGH Voice ID: [id number] Report ID: [id number] CHRISTOPH
[2021-08-03] MEDS: TRAZODONE 50 MG TABLET PO SCH ×2 (21:00)
[2021-08-03] MEDS: HYDROCODONE/APAP 5/325 MG TAB PO PRN (21:22)
[2021-08-04] MEDS: AMPICILLIN/SULBACT 1.5 GM in NA CHLORIDE 0.9% 100 ML IVPB SCH ×7 (02:46→17:27)
[2021-08-04] MEDS ORDERED: NA CHLORIDE 0.9% 100 ML ONE (02:52)
[2021-08-04] MEDS: HYDROCODONE/APAP 5/325 MG TAB PO PRN (12:02)
--- NOTE | 2021-08-04 17:26 | P.PN ---
Subjective Date of Service: 08/04/21 Chief Complaint: cat bite Patient has no new complain. Status post I and D of cat bite wound on the dorsum of the right wrist. Wound left open for secondary closure. Physical Examination - Vital Signs Temperature: 96.4 F Blood Pressure: 111/56 Pulse: 59 Respirations: 18 Pulse Ox (%): 98 - Physical Exam General: Alert, In no apparent distress, Oriented x3 Neck: JVD not distended Respiratory: Clear to auscultation bilaterally, Normal air movement Cardiovascular: No edema, Regular rate/rhythm, Normal S1 S2 Gastrointestinal: Soft and benign, Non-distended Integumentary: Other (Right with wound dressing.) Neurological: Other (No focal motor deficit.) Assessment And Plan - Current Problems (Diagnosis) (1) Cat bite Current Visit: Yes Status: Acute Qualifiers: Encounter type: initial encounter Qualified Code(s): W55.01XA - Bitten by cat, initial encounter (2) Anxiety Current Visit: Yes Status: Chronic (3) Hypothyroid Current Visit: Yes Status: Chronic Qualifiers: Hypothyroidism type: unspecified Qualified Code(s): E03.9 - Hypothyroidism, unspecified - Plan Continue IV unasyn. Follow deep tissue wound culture: No growth, no organism seen. Pain management as needed. Continue other home medications. Dr. Iqbal to follow for secondary wound closure.
[2021-08-04] MEDS ORDERED: TRAZODONE 50 MG TABLET PO SCH (21:00)
[2021-08-05] MEDS: AMPICILLIN/SULBACT 1.5 GM in NA CHLORIDE 0.9% 100 ML IVPB SCH ×3 (01:15→12:40)
[2021-08-05] MEDS ORDERED: LEVOTHYROXINE SOD 0.05 MG TABLET PO SCH (06:00)
[2021-08-05 06:19] LABS: Absolute Lymphocytes (CBC) 1.6 K/uL (0.7-4.9); Basophils % 0.9 % (0-1.3); Hematocrit 36.8 % (36.0-45.0); Lymphocytes % 34.5 % (15.3-44.8); MPV 7.5 fL (7.6-11.3); RBC Red Blood Cell Count 3.88 M/uL (3.86-4.86)
[2021-08-05 06:32] LABS: BUN Blood Urea Nitrogen 5 mg/dL (7-18); Bicarbonate 27 mmol/L (21-32); Glucose Level 107 mg/dL (74-106); Potassium 3.8 mmol/L (3.5-5.1); Sodium Level 143 mmol/L (136-145)
[2021-08-05] MEDS ORDERED: ESCITALOPRAM 20 MG TAB PO SCH (09:00)
[2021-08-05] MEDS ORDERED: Ringers Lactate 1,000 ML IV ONE (11:51)
[2021-08-05] MEDS ORDERED: FENTANYL CITR 100 MCG/2 ML ONE (11:55)
[2021-08-05] MEDS ORDERED: propofoL 200 MG/20 ML VIAL IV ONE (11:55)
[2021-08-05] MEDS ORDERED: LIDOCAINE 1% MPF 5 ML VIAL ONE (11:55)
[2021-08-05] MEDS ORDERED: MIDAZOLAM HCL 2 MG/2 ML INJ ONE (11:55)
[2021-08-05] MEDS ORDERED: dexAMETHasone 10 MG/ML VIAL ONE (13:25)
[2021-08-05] MEDS ORDERED: KETOROLAC 30 MG/ML INJ ONE (13:25)
[2021-08-05] MEDS ORDERED: ONDANSETRON 4 MG/2 ML VIAL ONE (13:35)
[2021-08-05 13:39] VITALS: TEMP 97.8
[2021-08-05 13:44] VITALS: O2SAT 99
[2021-08-05] MEDS ORDERED: MORPHINE 4 MG/ML SYR ONE (13:58)
--- NOTE | 2021-08-05 15:33 | P.DS ---
Admission Date: 08/02/21 Discharge Date: 08/05/21 Disposition: ROUTINE DISCHARGE Discharge Condition: FAIR Reason for Admission: cat bite - Problems (1) Cat bite Current Visit: Yes Status: Acute Qualifiers: Encounter type: initial encounter Qualified Code(s): W55.01XA - Bitten by cat, initial encounter (2) Anxiety Current Visit: Yes Status: Chronic (3) Hypothyroid Current Visit: Yes Status: Chronic Qualifiers: Hypothyroidism type: unspecified Qualified Code(s): E03.9 - Hypothyroidism, unspecified Brief History of Present Illness: 55 yo F with hypothyroidism and anxiety presented after a cat bite and scratch. She went to the doctor and was prescribed augmentin and hydrocodone. She was instructed to see ortho if no improvement by Sunday. However the pain and swelling in her right hand continued to increase so she came to the ED. Right hand xray shows prominent hand and wrist soft tissue swelling with no air or foreign body identified and no acute bone finding. Hand surgeon Dr. Iqbal was contacted who recommended hospitalization for I and D. Hospital Course: Patient admitted to the medical floor started on IV Unasyn. She was seen by Dr. Clement who performed I and D, left the wound open and date secondary closure within a couple of days. Secondary closure was done today. Wound culture has yielded no growth. Patient is prescribed Augmentin to continue treatment. She will follow with Dr. Iqbal within 3 days. Vital Signs/Physical Exam: Temp Pulse Resp BP Pulse Ox 97.8 F 63 18 116/66 97 08/05/21 13:43 08/05/21 13:43 08/05/21 13:43 08/05/21 13:43 08/05/21 08:00 General: Alert, In no apparent distress, Oriented x3 HEENT: Mucous membr. moist/pink Neck: JVD not distended Respiratory: Clear to auscultation bilaterally, Normal air movement Cardiovascular: No edema, Regular rate/rhythm, Normal S1 S2 Gastrointestinal: Normal bowel sounds, Soft and benign, Non-distended, No tenderness Musculoskeletal: Other (right hand is dressed.) Neurological: Normal strength at 5/5 x4 extr Laboratory Data at Discharge: WBC 4.60 K/uL (4.3-10.9) 08/05/21 05:41 Hgb 12.3 g/dL (12.0-15.0) 08/05/21 05:41 Hct 36.8 % (36.0-45.0) D 08/05/21 05:41 Plt Count 281 K/uL (152-406) 08/05/21 05:41 Sodium 143 mmol/L (136-145) 08/05/21 05:41 Potassium 3.8 mmol/L (3.5-5.1) 08/05/21 05:41 BUN 5 mg/dL (7-18) L 08/05/21 05:41 Creatinine 0.50 mg/dL (0.55-1.3) L 08/05/21 05:41 Glucose 107 mg/dL (74-106) H 08/05/21 05:41 Phosphorus 3.3 mg/dL (2.5-4.9) 08/03/21 05:30 Magnesium 2.0 mg/dL (1.8-2.4) 08/03/21 05:30 Total Bilirubin 0.2 mg/dL (0.2-1.0) 08/03/21 05:30 AST 17 U/L (15-37) 08/03/21 05:30 ALT 13 U/L (12-78) 08/03/21 05:30 Alkaline Phosphatase 71 U/L (45-117) 08/03/21 05:30 Home Medications: Escitalopram Oxalate [Lexapro] 20 mg PO DAILY 08/04/21 Levothyroxine [Synthroid*] 50 mcg PO [id number] 08/04/21 Trazodone [Desyrel*] 100 mg PO BEDTIME 08/04/21 Amox/Clavulanate [Augmentin 875-125 Tab*] 875 mg PO BID #14 tab 08/05/21 Codeine/APAP [Tylenol #3*] 1 tab PO Q4HP PRN #30 tab 08/05/21 New Medications: Codeine/APAP [Tylenol #3*] 1 tab PO Q4HP PRN #30 tab PRN Reason: Pain Scale 2-4 (Mild) Amox/Clavulanate [Augmentin 875-125 Tab*] 875 mg PO BID #14 tab Diet: AHA Activity: Ad nilton Followup: Dale Iqbal MD [ACTIVE - CAN ADMIT] - (On Sunday08/08/2021) Jeimy Palacios MD [Primary Care Provider] - Time spent managing pt's care (in minutes): 33
[2021-08-05 17:06] VITALS: BP 120/62
[2021-08-05] MEDS ORDERED: AMOX/K CLAV 875 MG TAB PO SCH (21:00)
--- NOTE | 2021-08-09 14:07 | OP ---
Surgeon: Dale Iqbal MD Preoperative Diagnosis: Open wound of the right dorsal wrist. Postoperative Diagnosis: Open wound of the right dorsal wrist. Procedure Performed: Debridement of skin and subcutaneous tissue, simple closure 12 cm. Anesthesia: General. Procedure In Detail: After satisfactory induction of general anesthesia, right arm was prepped with DuraPrep, dry sterile drapes were applied in the usual manner. Arm was elevated. Tourniquet was inf lated to 250. Hand was placed on roll lock table. Curette, scissors and forceps were used to debrid e skin and subcutaneous tissue as needed. The wound was jet lavage irrigated with 3 L of Betadine so lution. Scrubbed with Betadine scrub. Tourniquet was released. Electrocautery was used for hemosta sis. The flaps were then closed with 4-0 Prolene, detention mattresses, simple sutures. Dressed with Xeroform and Kerlix. Patient tolerated procedure well and returned to recovery. TY/KAYLEIGH Voice ID: [id number] Report ID: [id number]
== END 2021-08-05 16:08 | disposition home or self-care (01) | DRG 605 ==
LOC: ER 15:53 → ERHOLD 21:28 → 4TH 08-03 18:00
PROVIDERS: ADMIT Internal Medicine; ATTEND Internal Medicine
PROC: 0JDJ3ZZ Extraction of Right Hand Subcutaneous Tissue and Fascia, Percutaneous Approach (ICD-10-PCS; principal; 2021-08-03 12:00)
PROC: 0JDJ3ZZ Extraction of Right Hand Subcutaneous Tissue and Fascia, Percutaneous Approach (ICD-10-PCS; 2021-08-05)
DX: S61.451A Open bite of right hand, initial encounter (principal); L03.113 Cellulitis of right upper limb; W55.01XA Bitten by cat, initial encounter; Y92.009 Unspecified place in unspecified non-institutional (private) residence as the place of occurrence of the external cause; F41.9 Anxiety disorder, unspecified; E03.9 Hypothyroidism, unspecified; Z20.822 Contact with and (suspected) exposure to COVID-19
CPT/HCPCS: 36415; 80048; 80053; 83605; 83735; 84100; 84145; 85025; 87040; 87070; 87075; 87205; 88304; 94760; 96374; 99283; J0295; J1100; J2175; J2250; J2405; J2704; J3010; J7030; J7050; J7120; Q5106; U0003

== ENCOUNTER 2022-06-18 09:17 | Emergency (ER) | payer BC ==
--- OUTSIDE RECORDS SUMMARY | 2022-06-18 09:20 | XMS REPORT | Continuity of Care Document ---
:1965 Author Organization [facility] t Address [address] [place] [address] [address]. [address] [place] [address] Care Team Providers Name Role Phone WILVER VILLA Attending Clinician Unavailable Wilver Villa MD Attending Clinician [phone] Leydi Khan CRNA Attending Clinician John Paul Trinidad MD Attending Clinician Doctor Unassigned, [place] Attending Clinician Unavailable Pob, [facility] Main Attending Clinician Unavailable WILVER VILLA Admitting Clinician Unavailable Wilver Villa MD Admitting Clinician Payers Payer Name Policy Type Policy Number Effective Date Expiration Date S [facility] [id number] 2018 00:00:00 Problems This patient has no known problems. Allergies, Adverse Reactions, Alerts Allergy Allergy Status Severity Reaction(s) Onset Inactive Treating Comm ents Source Name Type Date Date Clinician NO KNOWN Drug Active Univers ALLERGIE Class ity of S [facility] Social History Social Habit Start Date Stop Date Quantity Comments Source Sex Assigned At [facility] Alcohol intake 2020-01-20 2020-01-20 University of 00:00:00 00:00:00 [facility] Alcohol Comment 2020-01-20 2020-01-20 Occasional Drinker U niversity of 00:00:00 00:00:00 [facility] Smoking Status Start Date Stop Date Source Unknown if ever smoked [facility] Former smoker 2020-01-20 00:00:00 2020-01-20 00:00:00 Universi ty [facility] Medications Ordered Filled Start Stop Current Ordering Indication Dosage Frequency Signature Comments Components Source Medication Medication Date Date Medication? Clinician (SIG) Name Name lactated 2020-0 Yes 1000mL at 75 Univer s ringers IV 3-11 mL/hr, ity of infusion 16:15: 1,000 [place] 1[place]000 [place] 00 IV Medical Infusion, Branch CONTINUOUS , Starting Sun01/21/20 at 1115, Until Discontinu ed, Routine, PACU HYDROmorpho 2020-0 Yes .2mg 0.2 mg, Uni vers ne 3-11 Slow IV ity of (DILAUDID) 16:06: Push, [place] injection 20 Q5MIN PRN, Medi debbie 0.2 mg 10 doses, Branch Starting Sun01/21/20 at 1106, Until Discontinu ed, Routine, Pain (scale 7-10), PACU
Us e approved by (Faculty): PACU USE -ANESTHESI A SERVICE-HY DROMORPHON E INJECTIONS FENTanyl PF 2020-0 Yes 25ug 25 mcg, Uni vers (SUBLIMAZE 3-11 Slow IV ity of (PF)) 16:06: Push, [place] injection 20 Q5MIN PRN, Medi debbie 25 mcg 4 doses, Branch Starting Sun01/21/20 at 1106, Until Discontinu ed, Routine, Pain (scale 4-6), PACU ondansetron 2020-0 Yes 4mg 4 mg, Slow Univers (ZOFRAN 3-11 IV Push, ity of (PF)) 16:06: PRN, 1 [place] injection 4 20 dose, Medical mg Starting Branch Sun01/21/20 at 1106, Until Discontinu ed, Routine, Nausea and Vomiting (N/V), PACU bupivacaine 2020-0 Yes PRN, Univer s -epinephrin 3-11 Starting ity of e-pf 15:49: Wed [place] (SENSORCAIN 00 01/21/20 at Ga dical E 1049, Branch W/EPINEPHRI Until NE) 0.25 Discontinu %-1:200,000 ed, injection Routine, Intra-op HYDROmorphO 2019-0 2020- No Intravenou Univers ne 3-11 03-11 s, ONCE ity of (DILAUDID) 15:25: 15:54 INTRA [place] injection 00 :22 PROCEDURE, Medi debbie Starting Branch 01/21/20 at 1025, Until Sun01/21/20 at 1054, Routine, Intra-op ceFAZolin 2020-0 2020- No ONCE INTRA U nivers (ANCEF) 01-20 PROCEDURE, ity o f injection 14:51: 15:54 Starting Ronnie as 00 :22 Wed Medical 01/21/20 at Branch 0951, Until Sun01/21/20 at 1054, HANNA, Intra-op dexamethaso 2020-0 2020- No Intravenou Univers ne 01-20 s, ONCE ity of (DECADRON 14:51: 15:54 INTRA [place] PHOSPHATE) 00 :22 PROCEDURE, Med ical injection Starting Branch 01/21/20 at 0951, Until Sun01/21/20 at 1054, Routine, Intra-op propofol IV 2020-0 2020- No Intravenou Univers infusion 01-20 s, ONCE ity of 14:45: 15:54 INTRA [place] 00 :22 PROCEDURE, Medical Starting Branch 01/21/20 at 0945, Until Sun01/21/20 at 1054, Routine, Intra-op lidocaine 2020-0 2020- No ONCE INTRA U nivers 1% 01-20 PROCEDURE, ity of (XYLOCAINE) 14:45: 15:54 Starting [place] 100 mg/10 00 :22 Wed Medical mL (1 %) 01/21/20 at [facility] h injection 0945, Until Sun01/21/20 at 1054, Routine, Intra-op FENTanyl PF 2020-0 2020- No Intravenou Univers (SUBLIMAZE 01-20 s, ONCE ity o f (PF)) 14:45: 15:54 INTRA [place] injection 00 :22 PROCEDURE, Medi debbie Starting Branch 01/21/20 at 0945, Until Sun01/21/20 at 1054, Routine, Intra-op midazolam 2020-0 2020- No IV Push, Uni vers (VERSED) 01-20 ONCE INTRA ity of injection 14:34: 15:54 PROCEDURE, [place] 00 :22 Starting Medical Wed Branch 01/21/20 at 0934, Until Sun01/21/20 at 1054, Routine, Intra-op lactated 2020-0 2020- No IV Univers ringers IV 01-20 Infusion, ity of infusion 14:34: 15:54 CONTINUOUS [place] 00 :22 PRN, Medical Starting Branch 01/21/20 at 0934, Until Sun01/21/20 at 1054, Routine, Intra-op ceFAZolin 2019-0 2020- No 1000mg 1,000 mg, Univers (ANCEF) 01-20 IV ity of 1,000 mg in 14:30: 04:59 Piggyback, [place] NaCl 0.9% 00 :00 O.R. Medical (NS) 50 mL HOLDING [place] piggyback ONCE, 1 dose, Starting Sun01/21/20 at 0930, Until Sheila 01/22/20 at 2359, 50 mL, DSU Pre-op
Reason for Anti-Infec tive: Surgical Prophylaxi s
Surgi debbie Prophylaxi s: Orthopaedi c
Durat ion of therapy: within 24 hours of surgery famotidine 2019-0 2020- No ONCE INTRA Univers (PEPCID 01-20 PROCEDURE, ity o f (PF)) 14:26: 15:54 Starting [place] injection 00 :22 [facility] Medical 01/21/20 at Branch 0926, Until Sun01/21/20 at 1054, Routine, Intra-op lactated 2019-0 2020- No 1000mL at 20 Unive rs ringers IV 01-20 mL/hr, ity of infusion 13:30: 13:39 1,000 mL, [place]nie [place] 1,000 mL 00 :00 IV Medical Infusion, [place] ONCE, 1 dose, [facility] 01/21/20 at 0830, Routine, DSU Pre-op VIIBRYD 20 2020-0 Yes 20mg Take 20 mg U nivers mg 3-02 by mouth ity of 00:00: daily. [address] VIIBRYD 20 2020-0 Yes 20mg Take 20 mg U nivers mg 3-02 by mouth ity of 00:00: daily. [address] VIIBRYD 20 2020-0 Yes 20mg Take 20 mg U nivers mg 3-02 by mouth ity of 00:00: daily. [address] traZODone 2020-0 Yes 100mg Take 100 Uni vers 100 mg 1-31 mg by ity of tablet 00:00: mouth at [place] [address] bedtime. Medical Branch traZODone 2020-0 Yes 100mg Take 100 Uni vers 100 mg 1-31 mg by ity of tablet 00:00: mouth at [place] 00 bedtime. Medical Branch traZODone 2020-0 Yes 100mg Take 100 Uni vers 100 mg 1-31 mg by ity of tablet 00:00: mouth at [place] [address] bedtime. Medical Branch levothyroxi 2020-0 Yes 50ug Take 50 Uni vers ne 50 mcg 1-30 mcg by ity of tablet 00:00: mouth [place] 00 every Medical morning. Branch levothyroxi 2020-0 Yes 50ug Take 50 Uni vers ne 50 mcg 1-30 mcg by ity of tablet 00:00: mouth [place] 00 every Medical morning. Branch levothyroxi 2020-0 Yes 50ug Take 50 Uni vers ne 50 mcg 1-30 mcg by ity of tablet 00:00: mouth [place] 00 every Medical morning. Branch Vital Signs Vital Name Observation Time Observation Value Comments Source Systolic blood 2020-01-21 16:45:00 116 mm[Hg] Univer sity [facility] Diastolic blood 2020-01-21 16:45:00 64 mm[Hg] Unive rsity [facility] Heart rate 2020-01-21 16:45:00 62 /min [facility] Body temperature 2020-01-21 16:45:00 36.89 Kanika [facility] Respiratory rate 2020-01-21 16:45:00 18 /min [facility] Oxygen saturation in 2020-01-21 16:45:00 96 /min [facility] Arterial blood by [facility] Pulse oximetry Branch Body height 2020-01-20 18:18:00 160 cm [facility] Body weight 2020-01-20 18:18:00 63.5 kg [facility] BMI 2020-01-20 18:18:00 24.80 kg/m2 [facility] Systolic blood 2020-01-21 16:45:00 116 mm[Hg] Univer sity of [facility] Diastolic blood 2020-01-21 16:45:00 64 mm[Hg] Unive rsity [facility] Heart rate 2020-01-21 16:45:00 62 /min Universi [facility] Body temperature 2020-01-21 16:45:00 36.89 Kanika [facility] 2020-01-21 16:45:00 18 /min [facility] Oxygen saturation in 2020-01-21 16:45:00 96 /min [facility] Arterial blood by [facility] Pulse oximetry Branch Body height 2020-01-20 18:18:00 160 [facility] 2020-01-20 18:18:00 63.5 kg [facility] BMI 2020-01-20 18:18:00 24.80 kg/m2 [facility] Respiratory rate 2020-01-21 15:45:00 14 /min [facility] Respiratory rate 2020-01-21 15:45:00 14 /min [facility] Procedures Procedure Date / Time Performed Performing Clinician [facility] e INTUBATION 2020-01-21 14:56:04 Arturo John [place] o f [facility] DAY SURGERY - ADC 2020-01-21 05:01:00 Doctor Unassigned, No [facility] ASSIGNMENT OF BENEFITS 2020-01-19 14:38:07 Doctor Unassigned, No [facility] ASSIGNMENT OF BENEFITS 2020-01-19 14:37:49 Doctor Unassigned, No [facility] Encounters Start End Encounter Admission Attending Care Care Encounter Source Date/Time Date/Time Type Type Clinicians Facility Department ID 2021-09-08 Outpatient R [facility] JOSE [id number] [facility] 13:16:22 WILVER rogel [facility] 2020-01-21 2020-01-21 [facility] [id number] 08:27:00 12:16:00 Encounter Wilver Norris [id number] Alex[place] [id number] Surgical [id number] [place] 071 2020-01-21 2020-01-21 [facility] [id number] [facility] 08:27:00 12:16:00 Encounter Wilver Norris [id number] ity of [place] [id number] [place] Surgical [id number] [facility] 071 Branch 2020-01-21 2020-01-21 Anesthesia Leydi Khan [facility] 1.2. 840.114 [id number] 09:34:00 10:54:00 John Paul Trinidad [id number] [place] [id number] Surgical [id number] [place] [address] 2020-01-21 2020-01-21 Anesthesia Roxanayohannes Leydi [facility] 1.2. 840.114 [id number] [facility] 09:34:00 10:54:00 John Paul Trinidad [id number] ity of [place] [id number] [place] [id number] [facility] 020 [place] 2020-01-21 2020-01-21 Orders Doctor SCHAFFER [id number] Univers 00:00:00 00:00:00 Only Unassigned, DANI [id number] ity of [place] [facility] [id number] Ronnie as [id number] [facility] 009 [place] 2020-01-21 2020-01-21 Orders Doctor SCHAFFER 1.2.840.114 [id number] 00:00:00 00:00:00 Only Unassigned, DANI [id number] [place] [facility] [id number] [id number] [facility][note 2] 2020-01-19 2020-01-19 Real Estate Services Administrator Sissy Austin Lab Main [facility] 1.2.8 40.114 [id number] [facility] 09:49:44 10:04:44 Visit Wilver Villa 350.1. 13.10 ity of [place] [id number] [place] Professio [id number] [place] dical [facility] 2020-01-19 2020-01-19 Real Estate Services Administrator Sissy Austin [facility] 1.2.840.114 [id number] 09:49:44 10:04:44 Visit Lab Main Myrna [id number] [place] [id number] Professio [id number] [address] 2020-01-19 2020-01-19 Outpatient R JONES [facility] [id number] [facility] 09:45:00 09:45:00 WILVER itelin of [facility] 2020-01-19 2020-01-19 Orders Doctor SARBJIT 1.2.840.114 [id number] Univers 00:00:00 00:00:00 Only Unassigned, DANI [id number] ity of [place] [facility] [id number] Ronnie [place] [id number] [address] 2020-01-19 2020-01-19 Orders Doctor SARBJIT 1.2.840.114 [id number] 00:00:00 00:00:00 Only Unassigned, DANI [id number] [place] [facility] [id number] [id number] Results Test Test Test Results Result Source Description Time Comments Comments Intubation 2020-01- Arturo John CRNA ? ? Un iversity of 01/21/2020 ?9:56 [facility] 14:56:04 AMIntubationUrgency: Bran ch elective Airway not difficult General Information and Staff Patient location during procedure: ORResident/UNIFORM CAP OPERATOR: Arturo John CRNAPerformed: resident/UNIFORM CAP OPERATOR Indications and Patient ConditionIndications for airway management: anesthesiaSpontaneous Ventilation: absentSedation level: deepPreoxygenated: yesPatient position: sniffingMask difficulty assessment: 1 - vent by mask Final Airway DetailsFinal airway type: supraglottic airway Successful airway: classicSize 3 Number of attempts at approach: 1 Additional CommentsAirway dry intact
[2022-06-18] MEDS ORDERED: TETANUS & DIPHTHERIA TOX,ADULT 0.5 ML VIAL ONE (09:55)
[2022-06-18] MEDS ORDERED: HYDROCODONE/APAP 10/325 TAB ONE (10:06)
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
[2022-06-18 10:57] VITALS: TEMP 97.4
[2022-06-18 11:09] VITALS: BP 110/65; O2SAT 99
== END 2022-06-18 10:33 | disposition home or self-care (01) ==
LOC: ER 09:17
DX: T24.212A Burn of second degree of left thigh, initial encounter (principal); T31.0 Burns involving less than 10% of body surface; Z23 Encounter for immunization; E07.9 Disorder of thyroid, unspecified
CPT/HCPCS: 90471; 90714; 99283

== ENCOUNTER 2024-12-31 16:01 | Emergency (ER) | payer BC ==
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
--- NOTE | 2024-12-31 16:47 | RAD REPORT ---
EXAM: XR LEFT HAND HISTORY: Pain. DEFORMITY COMPARISON: None TECHNIQUE: Multiple projections of the left hand submitted. FINDINGS: Mildly displaced fourth digit tuft fracture is present. Mild adjacent soft tissue swelling. . Mild diffuse osteopenia
[2024-12-31 17:47] LABS: Absolute Eosinophils 0.1 K/uL (0-0.5); Absolute Lymphocytes (CBC) 1.7 K/uL (0.7-4.9); Absolute Monocytes 0.4 K/uL (0.1-1.3); Absolute Neutrophil 6.9 K/uL (1.8-8.0); Basophils % 0.5 % (0-1.3); Eosinophils % 1.1 % (0-4.4); Hematocrit 40.4 % (36.0-45.0); Hemoglobin 13.8 g/dL (12.0-15.0); Lymphocytes % 18.6 % (15.3-44.8); MCH 32.6 pg (27.0-35.0); MCHC 34.1 g/dL (32.0-36.0); MCV 95.7 fL (80-100); MPV 8.7 fL (7.6-11.3); Monocytes % 4.8 % (3.3-12.3); Platelets 256 thou/uL (152-406); RBC Red Blood Cell Count 4.23 M/uL (3.86-4.86); Red Cell Distribution Width 12.1 % (12.1-15.2)
[2024-12-31 17:58] LABS: Anion Gap 5.1 mEq/L (5.0-15.0); Potassium 4.1 mEq/L (3.5-5.1)
[2024-12-31] MEDS ORDERED: MORPHINE 4 MG/ML SYR ONE (18:06)
[2024-12-31] MEDS ORDERED: CEFAZOLIN SODIUM 1 GM/VIAL ONE (18:06)
[2024-12-31] MEDS ORDERED: LIDOCAINE 1% 20 ML MDV ONE (18:06)
[2024-12-31] MEDS ORDERED: ONDANSETRON 4 MG/2 ML VIAL ONE (18:06)
[2024-12-31] MEDS ORDERED: TDAP (DIPHTH,PERTUSS(ACELL),TET VAC) 0.5 ML VIAL IMVAC ONE (18:07)
--- NOTE | 2024-12-31 21:25 | ER ---
Nurse's Notes [facility] Name: Madelyn Schmidt Age: 59 yrs Sex: Female : 1965 Arrival Date: 12/31/2024 Time: 16:01 Bed DX3 Private MD: Diagnosis: Laceration without foreign body of left ring finger with damage to nail, initial encounter;Tuft fracture of left ring finger Presentation: 12/31 16:10 Chief complaint: Patient states: Smashed L hand 4th digit in metal door just [employer]. ll1 Bleeding controlled. Coronavirus screen: Client denies travel out of the [place] in the last 14 days. At this time, the client does not indicate any symptoms associated with coronavirus-19. Ebola Screen: Patient denies travel to an Ebola-affected area in the 21 days before illness onset. Initial Sepsis Screen: Does the patient meet any 2 criteria? No. Patient's initial sepsis screen is negative. Does the patient have a suspected source of infection? No. Patient's initial sepsis screen is negative. Risk Assessment: Do you want to hurt yourself or someone else? Patient reports no desire to harm self or others. Onset of symptoms was December 31, 2024. 16:10 Method Of Arrival: Ambulatory ll1 16:10 Acuity: MANISHA 3 ll1 Triage Assessment: 16:11 General: Appears uncomfortable, Behavior is calm, cooperative, appropriate for age. ll1 Pain: Complains of pain in left hand Pain currently is 9 out of 10 on a pain scale. Quality of pain is described as aching, throbbing. Derm: Reports laceration through nailbed of L hand 4th digit. Musculoskeletal: Reports pain in left hand. Injury Description: Crush injury sustained to left hand. Historical: - Allergies: 16:11 No Known Allergies; ll1 - PMHx: 16:11 depressive disorder; thyroid; ll1 - PSHx: 16:11 knee SX; ll1 - Immunization history:: Adult Immunizations up to date. - Social history:: Smoking status: Reported history of juuling and/or vaping. Patient denies any tobacco usage or history of. Screenin:24 [facility] ED Fall Risk Assessment (Adult) History of falling in the last 3 months, iw including since admission No falls in past 3 months (0 pts) Confusion or Disorientation No (0 pts) Intoxicated or Sedated No (0 pts) Impaired Gait No (0 pts) Mobility Assist Device Used No (0 pt) Altered Elimination No (0 pt) Score/Fall Risk Level 0 - 2 = Low Risk Oriented to surroundings. Abuse screen: Denies injuries from another. Nutritional screening: No deficits noted. Tuberculosis screening: No symptoms or risk factors identified. Assessment: 17:50 General: Appears in no apparent distress. Behavior is calm, cooperative. Pain: iw Complains of pain in left ring fingernail. Neuro: Level of Consciousness is awake, alert, obeys commands, Oriented to person, place, time, situation, Moves all extremities. Cardiovascular: Patient's skin is warm and dry. Respiratory: Respiratory effort is even, unlabored, Respiratory pattern is regular, symmetrical. Derm: Musculoskeletal: Range of motion: limited in DIP of left ring finger. Injury Description: Crush injury sustained to left ring fingernail and palmar aspect of distal phalanx of left ring finger and dorsal aspect of distal phalanx of left ring finger. 18:24 Reassessment: Patient appears in no apparent distress at this time. Patient and/or iw family updated on plan of care and expected duration. Pain level reassessed. Patient is alert, oriented x 3, equal unlabored respirations, skin warm/dry/pink. pt medicated for pain. 20:23 Reassessment: Patient appears in no apparent distress at this time. Patient and/or jb4 family updated on plan of care and expected duration. Pain level reassessed. Patient is alert, oriented x 3, equal unlabored respirations, skin warm/dry/pink. 21:30 Reassessment: Patient appears in no apparent distress at this time. Patient and/or jb4 family updated on plan of care and expected duration. Pain level reassessed. Patient is alert, oriented x 3, equal unlabored respirations, skin warm/dry/pink. 22:30 Reassessment: Patient appears in no apparent distress at this time. Patient and/or jb4 family updated on plan of care and expected duration. Pain level reassessed. Patient is alert, oriented x 3, equal unlabored respirations, skin warm/dry/pink. Bandage applied to left ring finger, hand cleaned, and splinted. Vital Signs: 16:10 BP 153 / 94; Pulse 81; Resp 16; Temp 97.9; Pulse Ox 100% ; Weight 62.14 kg; Height 5 ll1 ft. 3 in. ; Pain 9/10; 16:10 Body Mass Index 24.27 (62.14 kg, 160.02 cm) ll1 16:10 Pain Scale: Adult ll1 ED Course: 16:05 Patient arrived in ED. al6 16:07 Penny Mcclain PA-C is PHCP. sb4 16:07 Jose A Jc MD is Attending Physician. sb4 16:11 Triage completed. ll1 16:11 Arm band placed on Patient placed in an exam room, on a stretcher. ll1 16:14 Penny Mcclain PA-C is PHCP. sb4 16:14 Jose A Jc MD is Attending Physician. sb4 16:34 Hand Left 3 View XRAY In Process Unspecified. EDMS 17:29 Basic Metabolic Panel Sent. bc6 17:29 CBC with Diff Sent. bc6 17:29 Initial lab(s) drawn, by wa, sent to lab. Inserted saline lock: 20 gauge in left bc6 antecubital area, using aseptic technique. Blood collected. Flushed with 10 mL NS. 18:03 Kayce Guajardo, RN is Primary Nurse. iw 18:25 Patient has correct armband on for positive identification. iw 22:20 Assist provider with laceration repair on DIP of left ring finger. IV discontinued, vc1 intact, bleeding controlled, No redness/swelling at site. Pressure dressing applied. 23:00 Provided Education on: Discharged instructions.. jb4 Administered Medications: 18:13 Drug: ceFAZolin IVPB 1 grams IVPB once Route: IVPB; Site: left antecubital; iw 18:14 Drug: morphine IVP or IV 4 mg IVP once over 4 mins Route: IVP; Infused Over: 4 mins; iw Site: left antecubital; 19:00 Follow up: Response: No adverse reaction; Marked relief of symptoms jb4 18:14 Drug: Ondansetron IVP 4 mg IVP once; over 2 minutes Route: IVP; Site: left antecubital; iw 19:00 Follow up: Response: No adverse reaction jb4 18:24 Drug: Boostrix Tdap IM 0.5 ml IM once; as a single dose Route: IM; Site: left deltoid; iw 19:00 Follow up: Response: No adverse reaction jb4 22:19 Drug: Lidocaine Infiltration (1 %) 10 ml 20 ml Infiltration once; to bedside {Note: vc1 Administered by BRAYDEN Benavides to left 4th finger.} Volume: 20 ml; Route: Infiltration; Site: wound; 22:19 Drug: HYDROcodone-acetaminophen PO 5 mg-325 mg 2 tabs PO once Route: PO; vc1 22:21 Follow up: Response: Medication administered at discharge. vc1 Medication: 22:30 VIS not applicable for this client. jb4 Outcome: 21:25 Discharge ordered by MD. sb4 23:00 Discharged to home ambulatory, jb4 23:00 Condition: stable 23:00 Discharge instructions given to patient, Instructed on discharge instructions, follow up and referral plans. no drinking with medication, no driving heavy equipment, medication usage, Demonstrated understanding of instructions, follow-up care, medications, Prescriptions given X 2, 23:09 Patient left the ED. vc1 Signatures: Dispatcher [employer] EDMS Kayce Guajardo RN RN Phill Levy RN RN jb4 Johnna Bauer RN RN ll1 Radha Whitlock RN RN vc1 Penny Mcclain PA-C PA-C sb4 Emma Grigsby bc6 Rebecca Randall al6 Corrections: (The following items were deleted from the chart) 22:20 22:19 Lidocaine Infiltration (1 %) 10 ml 20 ml Infiltration in wound; Administered by vc1 BRAYDEN Benavides to left 5th digit vc1 23:02 22:20 Patient did not have IV access during this emergency room visit. vc1 vc1
--- NOTE | 2024-12-31 21:25 | EDPHYS ---
Physician Documentation [facility] Name: Madelyn Schmidt Age: 59 yrs Sex: Female : 1965 Arrival Date: 12/31/2024 Time: 16:01 Bed DX3 Private MD: ED Physician Jose A Jc HPI: 12/31 16:20 This 59 yrs old Female presents to ER via Ambulatory with complaints of Finger Injury. sb4 16:20 metal door crushed left ring finger at work. laceration involving fingernail. bleeding sb4 controlled. Historical: - Allergies: 16:11 No Known Allergies; ll1 - PMHx: 16:11 depressive disorder; thyroid; ll1 - PSHx: 16:11 knee SX; ll1 - Immunization history:: Adult Immunizations up to date. - Social history:: Smoking status: Reported history of juuling and/or vaping. Patient denies any tobacco usage or history of. ROS: 16:21 Constitutional: Negative for fever, chills, and weight loss, sb4 16:21 Skin: Positive for laceration(s), of the dorsal aspect of distal phalanx of left ring finger, palmar aspect of distal phalanx of left ring finger and left ring fingernail, 16:21 All other systems are negative, Exam: 16:21 Constitutional: This is a well developed, well nourished patient who is awake, alert, sb4 and in no acute distress. Head/Face: Normocephalic, atraumatic. Eyes: Extra-ocular motions intact. Periorbital areas with no swelling, redness, or edema. ENT: Mucous membranes moist. Respiratory: No increased work of breathing, no retractions or nasal flaring. 16:21 Skin: injury, laceration(s), the wound is approximately 3 cm(s), with a depth of 1 cm(s), of the left ring fingernail and palmar aspect of distal phalanx of left ring finger and dorsal aspect of distal phalanx of left ring finger, that can be described as no foreign body, irregular, with mild bleeding, Vital Signs: 16:10 BP 153 / 94; Pulse 81; Resp 16; Temp 97.9; Pulse Ox 100% ; Weight 62.14 kg; Height 5 ll1 ft. 3 in. ; Pain 9/10; 16:10 Body Mass Index 24.27 (62.14 kg, 160.02 cm) ll1 16:10 Pain Scale: Adult ll1 Procedures: 22:55 Nerve block: (digital) of dorsal aspect of proximal phalanx of left ring finger sb4 Medication: Lidocaine 1% without epinephrine Amount: 5 mls were injected, Effect: the patient's symptoms are improved, moderately, Set up for procedure. Performed by Penny Mcclain PA-C Patient tolerated well. Nail reembedded into nailbed by me then sutured down with 5-0 Prolene. MDM: 16:07 Medical Screening Exam initiated sb4 22:56 Data reviewed: vital signs, nurses notes, lab test result(s), radiologic studies, and sb4 as a result, I will discharge patient. Counseling: I had a detailed discussion with the patient and/or guardian regarding the historical points, exam findings, and any diagnostic results supporting the discharge/admit diagnosis, lab results, radiology results, the need for outpatient follow up, a hand specialist, to return to the emergency department if symptoms worsen or persist or if there are any questions or concerns that arise at home. 12/31 16:17 Order name: Basic Metabolic Panel; Complete Time: 18:00 sb4 12/31 16:17 Order name: CBC with Diff; Complete Time: 17:57 sb4 12/31 16:14 Order name: Hand Left 3 View XRAY; Complete Time: 16:48 sb4 12/31 16:17 Order name: Labs collected and sent; Complete Time: 17:29 sb4 12/31 16:17 Order name: IV Start; Complete Time: 17:29 sb4 12/31 17:43 Order name: Wound Care: betadine bath; Complete Time: 19:49 sb4 12/31 21:24 Order name: Finger Splint; Complete Time: 22:19 sb4 Administered Medications: 18:13 Drug: ceFAZolin IVPB 1 grams IVPB once Route: IVPB; Site: left antecubital; iw 18:14 Drug: morphine IVP or IV 4 mg IVP once over 4 mins Route: IVP; Infused Over: 4 mins; iw Site: left antecubital; 19:00 Follow up: Response: No adverse reaction; Marked relief of symptoms jb4 18:14 Drug: Ondansetron IVP 4 mg IVP once; over 2 minutes Route: IVP; Site: left antecubital; iw 19:00 Follow up: Response: No adverse reaction jb4 18:24 Drug: Boostrix Tdap IM 0.5 ml IM once; as a single dose Route: IM; Site: left deltoid; iw 19:00 Follow up: Response: No adverse reaction jb4 22:19 Drug: Lidocaine Infiltration (1 %) 10 ml 20 ml Infiltration once; to bedside {Note: vc1 Administered by BRAYDEN Benavides to left 4th finger.} Volume: 20 ml; Route: Infiltration; Site: wound; 22:19 Drug: HYDROcodone-acetaminophen PO 5 mg-325 mg 2 tabs PO once Route: PO; vc1 22:21 Follow up: Response: Medication administered at discharge. vc1 Disposition: 01/01 11:03 Co-signature as Attending Physician, Jose A Jc MD I reviewed the patient's care rn provided by the Advanced Practice Provider and agree with the diagnosis and treatment plan. Disposition Summary: 12/31/24 21:25 Discharge Ordered Notes: Location: Home sb4 Problem: new sb4 Symptoms: have improved sb4 Condition: Stable sb4 Diagnosis - Laceration without foreign body of left ring finger with damage to nail, initial sb4 encounter - Tuft fracture of left ring finger sb4 Followup: sb4 - With: Private Physician - When: 1 week - Reason: Recheck today's complaints, Re-evaluation by your physician Discharge Instructions: - Discharge Summary Sheet sb4 - Nonsutured Laceration Care sb4 - Nail Avulsion sb4 - Nail Bed Injury, [id number] sb4 Forms: - Antibiotic Education sb4 - Prescription Opioid Use sb4 - Patient Portal Instructions sb4 - Leadership Thank You Letter sb4 Prescriptions: - Cephalexin 500 mg Oral Capsule - take 1 capsule ORAL route every 8 hours for 10 days; 30 capsule; Refills: 0, sb4 Product Selection Permitted - Tramadol 50 mg Oral Tablet - take 1 tablet ORAL route every 8 hours as needed; 12 tablet; Refills: 0, sb4 Product Selection Permitted Signatures: Dispatcher [employer] Kayce Espinoza RN RN iw Nieto, Roman, MD MD rn Lewis, Lynsay, RN RN ll1 Radha Whitlock RN RN 1 Penny Mcclain PA-C PA-C sb4 Phill eLvy RN jb4 Corrections: (The following items were deleted from the chart) 12/31 16: 16:17 BASIC METABOLIC PANEL+C.LAB.BRZ ordered. EDMS EDMS 16:17 CBC+H.LAB.BRZ ordered. EDMS EDMS
[2024-12-31] MEDS ORDERED: HYDROCODONE/APAP 5/325 MG TAB ONE (22:16)
[2025-01-02 11:22] VITALS: BP 153/94; TEMP 97.9; O2SAT 100
== END 2024-12-31 23:09 | disposition home or self-care (01) ==
LOC: ER 16:01
PROC: 2W3KX1Z Immobilization of Left Finger using Splint (ICD-10-PCS; principal; 2024-12-31)
DX: S61.315A Laceration without foreign body of left ring finger with damage to nail, initial encounter (principal); S62.605A Fracture of unspecified phalanx of left ring finger, initial encounter for closed fracture; W23.0XXA Caught, crushed, jammed, or pinched between moving objects, initial encounter; Y99.0 Civilian activity done for income or pay
CPT/HCPCS: 85025; 80048; 36415; 73130; 64450; 96375; 96372; 96374; 99284; 29130; J2003; J2405; J0690